=== PATIENT | male | born 1980 | race Caucasian/White ===

== ENCOUNTER → 2020-09-05 08:34 | Outpatient (CLI) | payer OTHER, SELFPAY ==
--- NOTE | 2020-09-05 08:37 | DI.MRI.S_ITS ---
PROCEDURE: MR HUMERUS RT WO CON INDICATIONS: Lateral epicondylitis, right elbow TECHNIQUE: Noncontrast coronal and sagittal T1 spin echo and STIR; axial T1 spin echo and T2 fast spin echo with fat saturation through the left humerus COMPARISON: None. FINDINGS: Image quality: Excellent. Bones: The visualized bone marrow demonstrates normal signal on all sequences. The overlying cortex appears intact. No fractures lines or intra-osseous lesions. Soft tissues: There is tendinosis/low-grade partial-thickness tear involving common extensor tendon origin at lateral epicondyle with mild surrounding edema and intrasubstance T2 hyperintense signal. There is also mildly thickened underlying lateral collateral ligaments consistent with sprain/low-grade partial-thickness tear. Medial elbow tendons and ligaments are grossly intact. The scanned muscles demonstrate normal overall bulk and internal signal. Subcutaneous tissues appear normal as well. No soft tissue masses are present. IMPRESSION: 1. Finding is consistent with clinical diagnosis of lateral epicondylitis with tendinosis/low-grade partial-thickness tear involving common extensor tendon origin and mild sprain/low-grade partial-thickness tear involving underlying lateral collateral ligaments. 2. No marrow signal abnormality. No fracture or dislocation. 3. No other muscle or tendon signal abnormality is seen. Dictated by: Orlando Saucedo M.D. on 09/08/2020 at 9:45 Approved by: Orlando Saucedo M.D. on 09/08/2020 at 9:47
== END ==
PROVIDERS: Referring Provider Student in an Organized Health Care Education/Training Program; Visit Provider Student in an Organized Health Care Education/Training Program
DX: M77.11 Lateral epicondylitis, right elbow (principal)
CPT/HCPCS: 73218

== ENCOUNTER 2022-01-04 04:53 | Emergency (ER) | payer OTHER, SELFPAY ==
[2022-01-04 04:56] VITALS: BP 135/65; PULSE 98; RESP 20; TEMP 36.9; O2SAT 96; BMI 24.4
[2022-01-04 05:37] LABS: Add Manual Diff / Slide Review NO; Basophils Absolute Auto 0 /uL (0-100); Basophils Percent Auto 0.7 % (0-2); Eosinophils Absolute Auto 0 /uL (0-450); Eosinophils Percent Auto 0.6 % (2-4); Hematocrit 45.1 % (41-53); Hemoglobin 15.2 g/dL (13.5-17.5); Lymphocytes Absolute Auto 1000 /uL (1100-4500); Mean Corpuscular HGB Conc 33.7 % (30-36); Mean Corpuscular Hemoglobin 29.9 PG (26-34); Mean Corpuscular Volume 88.7 fL (80-100); Monocytes Absolute Auto 600 /uL (0-900); Monocytes Percent Auto 9.3 % (3-14); Neutrophils Absolute Auto 4300 /uL (1500-7000); Neutrophils Percent Auto 72.4 % (50-75); Platelet Count 211 X10^3/uL (150-400); Red Blood Cell Count 5.09 X10^6/uL (4.5-5.9); Red Cell Distribution Width 13.3 % (11.6-14.8)
[2022-01-04 05:40] LABS: Alanine Aminotransferase 23 IU/L (<50); Albumin 4.5 g/dL (3.5-5.0); Albumin Globulin Ratio 1.5 (1.0-2.8); Alkaline Phosphatase 74 U/L (38-126); Aspartate Aminotransferase 23 IU/L (17-59); BUN Creatinine Ratio 15.3 (6-22); Bilirubin Total 0.5 mg/dL (0.2-1.3); Blood Urea Nitrogen 13 mg/dL (9-20); Calcium 9.3 mg/dL (8.4-10.2); Carbon Dioxide 26 mmol/L (22-32); Chloride 104 mmol/L (98-107); Estimated Glomerular Filt Rate > 60 mL/min (>60); Glucose 114 mg/dL (70-100); HEMOLYSIS < 15 (0-50); Lipase 144 U/L (23-300); Potassium 3.6 mmol/L (3.4-5.1); Sodium 142 mmol/L (137-145); Total Protein 7.5 g/dL (6.3-8.2)
--- NOTE | 2022-01-04 06:20 | ED_ITS ---
HPI - Abdominal Pain <Ayan Crouch DO - Last Filed: 01/05/22 05:35> General Chief Complaint: Abdominal Pain Stated Complaint: abd pain Time Seen by Provider: 01/04/22 05:36 Source: patient Mode of arrival: Ambulatory History of Present Illness HPI narrative: 41-year-old male nonsmoker without any significant medical history presents with a chief complaint of multiple days of gradually worsening right lower quadrant pain that now radiates to his back. He is had nausea and increasingly poor appetite. He states his pain is worse when he moves and improves some with rest. He denies any obvious provocation or palliation with the passage of stool but does state he is had multiple loose stools over the past few days. He denies any blood, recent use of antibiotics, bad food, other ill persons or travel. He denies fever but has had chills and generally feels quite poorly. He denies any dysuria, frequency or urgency Related Data Home Medications Medication Instructions Recorded Confirmed buprenorphine 2 mg-naloxone 0.5 mg 1 film buccal DAILY 12/02/20 12/02/20 sublingual film (Suboxone) calcium citrate 250 mg PO BID 12/02/20 12/02/20 diphenhydramine HCl 25 mg capsule 25 mg PO BEDTIME 12/02/20 12/02/20 (Benadryl) fluoride (sodium) 1.1 % dental dental DAILY PRN 12/02/20 12/02/20 paste (PreviDent 5000 Booster Plus) fluticasone propionate 50 1 spray intranasal DAILY 12/02/20 12/02/20 mcg/actuation nasal spray,suspension glucosamine sulfate 1,000 mg tablet 1,000 mg PO BID 12/02/20 12/02/20 lidocaine 5 % topical patch 1 patch topical DAILY 12/02/20 12/02/20 (Lidoderm) multivitamin 1 tab PO DAILY 12/02/20 12/02/20 omeprazole 20 mg capsule,delayed 20 mg PO DAILY 12/02/20 12/02/20 release sildenafil 25 mg tablet (Viagra) 25 mg PO DAILY PRN 12/02/20 12/02/20 Previous Rx's Medication Instructions Recorded ondansetron 4 mg disintegrating 4 mg PO TID-QID PRN nausea and 01/04/22 tablet vomiting #10 tabs pantoprazole 40 mg tablet,delayed 40 mg PO DAILY #30 tabs 01/04/22 release (Protonix) Allergies Allergy/AdvReac Type Severity Reaction Status Date / Time No Known Drug Allergies Allergy Verified 12/02/20 11:13 Review of Systems <Ayan Crouch DO - Last Filed: 01/05/22 05:35> Review of Systems Narrative: GENERAL: Denies chills, fatigue, malaise, fever, sweats. HEENT: Denies sinus pain, ear pain, sore throat, difficulty swallowing, dizziness. RESPIRATORY: Denies dyspnea, cough, wheezing, hemoptysis, sputum. CARDIOVASCULAR: Denies chest pain, palpitations, orthopnea, edema, GASTROINTESTINAL: See HPI : Denies dysuria, frequency, incontinence, hematuria, urinary retention. MUSCULOSKELETAL: denies weakness, joint pain, or bony pain SKIN: Denies rash, skin lesions, or other NEUROLOGIC: Denies weakness, headache, numbness, change in speech, confusion, seizures, incoordination. PSYCHIATRIC: No concerning psychosocial issues. 12 point review of systems is negative except for those stated above Patient History <Ayan Crouch DO - Last Filed: 01/05/22 05:35> Medical History Lateral epicondylitis of right elbow Surgical History H/O elbow surgery History of arthroplasty of right shoulder History of left wrist replacement [place] teeth removed Family History Father Cancer AA (alcohol abuse) Grandmother AA (alcohol abuse) Grandfather AA (alcohol abuse) Social History Smoking Status: Never smoker alcohol intake: former Smoking Status: Never smoker alcohol intake frequency: 0-2 drinks per day Substance Use Type: does not use Exam <DO Seth Ortiz Last Filed: 01/05/22 05:35> Narrative Exam Narrative: GENERAL: [41] year old patient appears stated age. Well-developed patient, in mild distress. HEAD: Atraumatic. Normocephalic. EYES: Pupils equal round and reactive. Extraocular motions intact. No scleral icterus. No injection or drainage. ENT: Nose without bleeding, purulent drainage. Throat without erythema, to nsillar hypertrophy or exudate. Airway patent. NECK: Trachea midline. Non tender CARDIOVASCULAR: Regular rate and rhythm without murmurs, gallops, or rubs. RESPIRATORY: Clear to auscultation. Breath sounds equal bilaterally. No wheezes, rales, or rhonchi. GASTROINTESTINAL: Abdomen soft, tender in the suprapubic and possibly right lower quadrant, no guarding or rebound, nondistended. Bowel sounds present in all 4 quadrants EXTREMITIES: No edema or joint tenderness. BACK: Nontender without deformity or crepitance. No flank tenderness. NEURO: AOx3. SKIN: No rash or erythema of visible areas Initial Vital Signs Initial Vital Signs: Vital Signs Temperature 98.4 F 01/04/22 04:56 Pulse Rate 98 H 01/04/22 04:56 Respiratory Rate 20 01/04/22 04:56 Blood Pressure 135/65 01/04/22 04:56 Pulse Oximetry 96 01/04/22 04:56 Oxygen Delivery Method 01/04/22 04:56 <Kavitha Martinez, DO - Last Filed: 01/04/22 10:33> Initial Vital Signs Initial Vital Signs: Vital Signs Temperature 98.4 F 01/04/22 04:56 Pulse Rate 98 H 01/04/22 04:56 Respiratory Rate 20 01/04/22 04:56 Blood Pressure 135/65 01/04/22 04:56 Pulse Oximetry 96 01/04/22 04:56 Oxygen Delivery Method 01/04/22 04:56 Course <Ayan Crouch, DO - Last Filed: 01/05/22 05:35> Orders Ordered: Discontinued Medications Sodium Chloride (Normal Saline 0.9%) 1,000 mls @ 1,000 mls/hr IV BOLUS ONE Stop: 01/04/22 07:20 Last Infusion: 01/04/22 07:36 Dose: 0 mls/hr Documented By: Admin: 01/04/22 06:35 Dose: 1,000 mls/hr Documented By: BRITT Ondansetron HCl (Ondansetron 4 Mg/2 Ml Inj) 4 mg IV NOW ONE Stop: 01/04/22 06:22 Last Admin: 01/04/22 06:35 Dose: 4 mg Documented By: BRITT Vital Signs Vital signs: Vital Signs - 8 hr 01/04/22 04:56 01/04/22 06:25 01/04/22 06:24 Temperature 98.4 F Pulse Rate 98 H 83 Respiratory Rate 20 17 Blood Pressure 135/65 121/86 121/76 Pulse Oximetry 96 Oxygen Delivery Method Room Air 01/04/22 06:24 01/04/22 06:30 01/04/22 07:42 Temperature Pulse Rate 85 90 Respiratory Rate Blood Pressure 120/71 Pulse Oximetry 98 96 Oxygen Delivery Method 01/04/22 07:42 Temperature Pulse Rate 81 Respiratory Rate Blood Pressure Pulse Oximetry 98 Oxygen Delivery Method <Kavitha Martinez DO - Last Filed: 01/04/22 10:33> Orders Ordered: Discontinued Medications Sodium Chloride (Normal Saline 0.9%) 1,000 mls @ 1,000 mls/hr IV BOLUS ONE Stop: 01/04/22 07:20 Last Infusion: 01/04/22 07:36 Dose: 0 mls/hr Documented By: Admin: 01/04/22 06:35 Dose: 1,000 mls/hr Documented By: BRITT Ondansetron HCl (Ondansetron 4 Mg/2 Ml Inj) 4 mg IV NOW ONE Stop: 01/04/22 06:22 Last Admin: 01/04/22 06:35 Dose: 4 mg Documented By: BRITT Vital Signs Vital signs: Vital Signs - 8 hr 01/04/22 04:56 01/04/22 06:25 01/04/22 06:24 Temperature 98.4 F Pulse Rate 98 H 83 Respiratory Rate 20 17 Blood Pressure 135/65 121/86 121/76 Pulse Oximetry 96 Oxygen Delivery Method Room Air 01/04/22 06:24 01/04/22 06:30 01/04/22 07:42 Temperature Pulse Rate 85 90 Respiratory Rate Blood Pressure 120/71 Pulse Oximetry 98 96 Oxygen Delivery Method 01/04/22 07:42 Temperature Pulse Rate 81 Respiratory Rate Blood Pressure Pulse Oximetry 98 Oxygen Delivery Method MDM - Abdominal Pain <Ayan Crouch DO - Last Filed: 01/05/22 05:35> Lab Data Result diagrams: 01/04/22 05:20 01/04/22 05:20 Labs: Lab Results 01/04/22 01/04/22 01/04/22 Range/Units 05:20 05:20 05:23 WBC 6.0 (4.5-11.0) X10^3/uL RBC 5.09 (4.5-5.9) X10^6/uL Hgb 15.2 (13.5-17.5) g/dL Hct 45.1 (41-53) % MCV 88.7 (80-100) fL MCH 29.9 (26-34) PG MCHC 33.7 (30-36) % RDW 13.3 (11.6-14.8) % Plt Count 211 (150-400) X10^3/uL Neut % (Auto) 72.4 (50-75) % Lymph % (Auto) 17.0 L (25-40) % Jessamine % (Auto) 9.3 (3-14) % Eos % (Auto) 0.6 L (2-4) % Baso % (Auto) 0.7 (0-2) % Neut # (Auto) 4300 (3067-5602) /uL Lymph # (Auto) 1000 L (4854-5566) /uL Jessamine # (Auto) 600 (0-900) /uL Eos # (Auto) 0 (0-450) /uL Baso # (Auto) 0 (0-100) /uL Sodium 142 (137-145) mmol/L Potassium 3.6 (3.4-5.1) mmol/L Chloride 104 (98-107) mmol/L Carbon Dioxide 26 (22-32) mmol/L BUN 13 (9-20) mg/dL Creatinine 0.85 (0.66-1.25) mg/dL Estimated GFR > 60 (>60) mL/min BUN/Creatinine Ratio 15.3 (6-22) Glucose 114 H (70-100) mg/dL Calcium 9.3 (8.4-10.2) mg/dL Total Bilirubin 0.5 (0.2-1.3) mg/dL AST 23 (17-59) IU/L ALT 23 (<50) IU/L Alkaline Phosphatase 74 (38-126) U/L Total Protein 7.5 (6.3-8.2) g/dL Albumin 4.5 (3.5-5.0) g/dL Globulin 3.0 (1.7-4.1) g/dL Albumin/Globulin Ratio 1.5 (1.0-2.8) Lipase 144 (23-300) U/L Stl C. cayetanensis PCR Not detected (Not Detect) Stool Rotavirus (PCR) Not detected (Not Detect) Stool Adenovirus (PCR) Not detected (Not Detect) Stool Astrovirus (PCR) Not detected (Not Detect) Stool Cryptosporidium PCR Detected H (Not Detect) Stl E.coli Shiga Tox PCR Not detected (Not Detect) St Sh/Enteroin Ecoli PCR Not detected (Not Detect) Stool E coli O157 PCR Not Reportable Stl Enterotoxigenic E PCR Not detected (Not Detect) Stool EPEC (PCR) Not detected (Not Detect) Stl E. histolytica PCR Not detected (Not Detect) Stool Giardia Lamblia PCR Not detected (Not Detect) Stool Sapovirus (PCR) Not detected (Not Detect) Stl P. shigelloides PCR Not detected (Not Detect) St Y.enterocolitica PCR Not detected (Not Detect) Stool Vibrio (PCR) Not detected (Not Detect) Stl Vibrio cholerae PCR Not detected (Not Detect) Stl Enteroaggr Ecoli PCR Not detected (Not Detect) Stl Norovirus GI/GII PCR Not detected (Not Detect) Campylobacter (PCR) Not detected (Not Detect) C. difficile Tox (PCR) Not detected (Not Detect) Salmonella (PCR) Not detected (Not Detect) Point of care testing: Urine Dip Bedside Urine Glucose Negative Bedside Urine Bilirubin - Negative Bedside Urine Ketone +/- 5 Urine Specific Beeler 1.015 Bedside Urine Occult Blood - Negative Bedside Urine pH 6.0 Bedside Urine Protein - Negative Bedside Urine Urobilinogen - Negative Bedside Urine Nitrite - Negative Bedside Urine Leukocytes - Negative Esterase <Kavitha Martinez, DO - Last Filed: 01/04/22 10:33> Lab Data Labs: Lab Results 01/04/22 01/04/22 01/04/22 Range/Units 05:20 05:20 05:23 WBC 6.0 (4.5-11.0) X10^3/uL RBC 5.09 (4.5-5.9) X10^6/uL Hgb 15.2 (13.5-17.5) g/dL Hct 45.1 (41-53) % MCV 88.7 (80-100) fL MCH 29.9 (26-34) PG MCHC 33.7 (30-36) % RDW 13.3 (11.6-14.8) % Plt Count 211 (150-400) X10^3/uL Neut % (Auto) 72.4 (50-75) % Lymph % (Auto) 17.0 L (25-40) % Jessamine % (Auto) 9.3 (3-14) % Eos % (Auto) 0.6 L (2-4) % Baso % (Auto) 0.7 (0-2) % Neut # (Auto) 4300 (0403-9103) /uL Lymph # (Auto) 1000 L (6069-2031) /uL Jessamine # (Auto) 600 (0-900) /uL Eos # (Auto) 0 (0-450) /uL Baso # (Auto) 0 (0-100) /uL Sodium 142 (137-145) mmol/L Potassium 3.6 (3.4-5.1) mmol/L Chloride 104 (98-107) mmol/L Carbon Dioxide 26 (22-32) mmol/L BUN 13 (9-20) mg/dL Creatinine 0.85 (0.66-1.25) mg/dL Estimated GFR > 60 (>60) mL/min BUN/Creatinine Ratio 15.3 (6-22) Glucose 114 H (70-100) mg/dL Calcium 9.3 (8.4-10.2) mg/dL Total Bilirubin 0.5 (0.2-1.3) mg/dL AST 23 (17-59) IU/L ALT 23 (<50) IU/L Alkaline Phosphatase 74 (38-126) U/L Total Protein 7.5 (6.3-8.2) g/dL Albumin 4.5 (3.5-5.0) g/dL Globulin 3.0 (1.7-4.1) g/dL Albumin/Globulin Ratio 1.5 (1.0-2.8) Lipase 144 (23-300) U/L Stl C. cayetanensis PCR Not detected (Not Detect) Stool Rotavirus (PCR) Not detected (Not Detect) Stool Adenovirus (PCR) Not detected (Not Detect) Stool Astrovirus (PCR) Not detected (Not Detect) Stool Cryptosporidium PCR Detected H (Not Detect) Stl E.coli Shiga Tox PCR Not detected (Not Detect) St Sh/Enteroin Ecoli PCR Not detected (Not Detect) Stool E coli O157 PCR Not Reportable Stl Enterotoxigenic E PCR Not detected (Not Detect) Stool EPEC (PCR) Not detected (Not Detect) Stl E. histolytica PCR Not detected (Not Detect) Stool Giardia Lamblia PCR Not detected (Not Detect) Stool Sapovirus (PCR) Not detected (Not Detect) Stl P. shigelloides PCR Not detected (Not Detect) St Y.enterocolitica PCR Not detected (Not Detect) Stool Vibrio (PCR) Not detected (Not Detect) Stl Vibrio cholerae PCR Not detected (Not Detect) Stl Enteroaggr Ecoli PCR Not detected (Not Detect) Stl Norovirus GI/GII PCR Not detected (Not Detect) Campylobacter (PCR) Not detected (Not Detect) C. difficile Tox (PCR) Not detected (Not Detect) Salmonella (PCR) Not detected (Not Detect) Point of care testing: Urine Dip Bedside Urine Glucose Negative Bedside Urine Bilirubin - Negative Bedside Urine Ketone +/- 5 Urine Specific Beeler 1.015 Bedside Urine Occult Blood - Negative Bedside Urine pH 6.0 Bedside Urine Protein - Negative Bedside Urine Urobilinogen - Negative Bedside Urine Nitrite - Negative Bedside Urine Leukocytes - Negative Esterase MDM Narrative Medical decision making narrative: Patient was never seen or evaluated by myself. Discharged prior to my arrival Discharge Plan Departure Patient Disposition: Home Clinical Impression: Cryptosporidial gastroenteritis Instructions: DI for Cryptosporidiosis Activity Restrictions/Additional Instructions: *You have been diagnosed with [abdominal pain due to parasitic diarrhea. As we discussed this tends to be self-limiting and we very rarely would treat with antibiotics or any other specific therapy * As we discussed your history and physical exam as well as labs and imaging are very reassuring. There is no evidence of any severe diagnoses that would re quire a specific or immediate intervention. *What to do: *Please continue to take your regular medications as directed. [x ] New medication prescriptions sent to your pharmacy: [ [facility]] *Please follow up with your primary care provider in 2-3 days, call for an appointment. Let them know you were seen in the Emergency Department and that we ask that you be seen in follow up. We will electronically transmit a record of today's note if your PCP is in our system *Please consider a clear liquid diet for the next 24-48 hours and then slowly advance to regular as tolerated. Also, try to avoid alcohol, nicotine, caffeine, spicy, acidic or fatty foods as this may worsen your symptoms *If you do not have a primary care provider please contact the [facility] Resource line at [phone]. They will ask some questions about your medical history and help get you set up with a doctor in the community. *Return to Emergency Department if you should have any new, worsening or concerning symptoms, such as [fever greater than 101 F, shaking chills, wors ening pain, persistent vomiting or other bothersome symptoms] Prescriptions: New pantoprazole [Protonix] 40 mg tablet,delayed release (DR/EC) 40 mg PO DAILY Qty: 30 0RF ondansetron 4 mg tablet,disintegrating 4 mg PO TID-QID PRN (Reason: nausea and vomiting) Qty: 10 0RF No Action diphenhydramine HCl [Benadryl] 25 mg capsule 25 mg PO BEDTIME calcium citrate 250 mg calcium tablet 250 mg PO BID fluticasone propionate 50 mcg/actuation spray,suspension 1 spray intranasal DAILY Rx Instructions: administer into each nostril glucosamine sulfate 1,000 mg tablet 1,000 mg PO BID Rx Instructions: administer with meals lidocaine [Lidoderm] 5 % adhesive patch,medicated 1 patch topical DAILY Rx Instructions: leave on most painful area for up to 12 hrs multivitamin Tablet 1 tab PO DAILY fluoride (sodium) [PreviDent 5000 Booster Plus] 1.1 % paste dental DAILY PRN omeprazole 20 mg capsule,delayed release(DR/EC) 20 mg PO DAILY sildenafil [Viagra] 25 mg tablet 25 mg PO DAILY PRN Rx Instructions: administer 30 minutes to 4 hours before activity buprenorphine-naloxone [Suboxone] 2-0.5 mg film 1 film buccal DAILY Rx Instructions: place 1 strip/tab under (each) side of tongue Referrals: Georges Peterson DO [Primary Care Provider] - Visit Report Forms: Patient Portal/API
--- NOTE | 2022-01-04 06:21 | DI.CT.S_ITS ---
PROCEDURE: CT ABDOMEN PELVIS W CON INDICATIONS: severe RLQ pain, radiation to back, anorexia TECHNIQUE: After the administration of intravenous contrast, axial sections acquired from the lung bases to the pubic symphysis. Coronal and sagittal reformats were performed. For radiation dose reduction, the following was used: automated exposure control, adjustment of mA and/or kV according to patient size. COMPARISON: None. FINDINGS: Image quality: Excellent. Lung bases: Unremarkable. Heart: No significant findings. ABDOMEN: Liver: Mild hepatic steatosis is seen, no discrete hepatic lesion. Gallbladder: Unremarkable. Biliary ducts: Unremarkable. Pancreas: Unremarkable. Spleen: Unremarkable. Adrenal Glands: Unremarkable. Kidneys and Ureters: Unremarkable. Stomach and Bowel: Stomach, small bowel loops, and colon are unremarkable. Appendix is visualized and is within normal limits. Peritoneum: No abnormal intraperitoneal fluid. No free air. Ventral Wall: No hernias. Abdominal Nodes: No retroperitoneal or mesenteric adenopathy by size criteria. Vessels: Aorta and inferior vena cava are normal in size. PELVIS: Pelvic Organs: Unremarkable. Bladder: Unremarkable. Pelvic Nodes: No enlarged lymph nodes. Miscellaneous: No hernias are seen. Bones: No suspicious bony lesion. No acute vertebral body compression fracture. Degenerative endplate changes are noted at L5-S1 level. IMPRESSION: 1. No acute inflammatory process within abdomen or pelvis. Appendix is visualized and is with normal limits. 2. Mild hepatic steatosis. No significant discrepancies from preliminary reading. Dictated by: Orlando Saucedo M.D. on 01/04/2022 at 8:15 Approved by: Orlando Saucedo M.D. on 01/04/2022 at 8:17
[2022-01-04 06:24] VITALS: BP 121/76; PULSE 85; O2SAT 98
[2022-01-04 06:25] VITALS: BP 121/86; PULSE 83; RESP 17
[2022-01-04 06:30] VITALS: PULSE 90; O2SAT 96
[2022-01-04] MEDS: SODIUM CHLORIDE 0.9% 1,000 ML 1000 ML IV (06:35)
[2022-01-04] MEDS: ONDANSETRON 4 MG/2 ML INJ IV (06:35)
[2022-01-04 07:20] LABS: Adenovirus F 40/41 Not Detected (Not Detect); Astrovirus Not Detected (Not Detect); Campylobacter Not Detected (Not Detect); Clostridium difficile toxin AB Not Detected (Not Detect); Cryptosporidium Detected (Not Detect); Cyclospora cayetanensis Not Detected (Not Detect); Entamoeba histolytica Not Detected (Not Detect); Enteroaggregative E.coli Not Detected (Not Detect); Enteropathogenic E.coli Not Detected (Not Detect); Enterotoxigenic E.coli It/st Not Detected (Not Detect); Giardia lamblia Not Detected (Not Detect); Norovirus GI/GII Not Detected (Not Detect); Plesiomonsa shigelloides Not Detected (Not Detect); Rotavirus A Not Detected (Not Detect); Salmonella Not Detected (Not Detect); Sapovirus Not Detected (Not Detect); Shiga-like toxin-prod E.coli Not Detected (Not Detect); Shigella/Enteroinvasive E.coli Not Detected (Not Detect); Vibrio Not Detected (Not Detect); Vibrio cholerae Not Detected (Not Detect); Yersinia enterocolitica Not Detected (Not Detect)
[2022-01-04 07:42] VITALS: BP 120/71; PULSE 81; O2SAT 98
== END 2022-01-04 08:19 | disposition home or self-care (01) ==
PROVIDERS: Emergency Provider Emergency Medicine; PCP Student in an Organized Health Care Education/Training Program
DX: A07.2 Cryptosporidiosis (principal); R11.0 Nausea
CPT/HCPCS: 36415; 74177; 80053; 81003; 83690; 85025; 87507; 93005; 96361; 96374; 99284; J2405; Q9967